=== PATIENT | male | born 2005 | race Caucasian/White ===

== ENCOUNTER 2025-01-20 11:32 | Observation (INO) ==
--- NOTE | 2025-01-20 12:13 | Emergency Department Note ---
Impression & Plan Headache ED Provider Note CHIEF COMPLAINT: Headache, blurred vision HISTORY OF PRESENTING ILLNESS: Patient is a pleasant, well-appearing, 19-year-old male who arrives to the emergency department for evaluation of generalized weakness, headache, and blurred vision. He reports tinnitus. He states he feels generally ill. He reports no upper respiratory symptoms, abdominal pain, nausea or vomiting. He states he has had intermittent fevers. He reports the headache has resolved, however then he began to have blurred vision. He reports no unilateral weakness, difficulty with speech, or balance issues. He reports no past medical history, other than slight anxiety. He reports no history of migraines. He is well-appearing otherwise, with slight hypertension, and tachycardia. He is afebrile. REVIEW OF SYSTEMS: See HPI for pertinent positives and pertinent negatives. ALLERGIES: See below MEDICATIONS: See below PAST MEDICAL HISTORY: See below PHYSICAL EXAM: VITALS: Vitals are noted on the nurse's note and reviewed by myself. Vital signs stable. GENERAL: 19-year-old male, in no acute distress, nondiaphoretic, well-developed well-nourished. SKIN: The skin was without rashes, erythema, edema, or bruising. HEAD: Normocephalic atraumatic. EARS: External auditory canals clear, tympanic membranes pearly perez without erythema or effusion bilaterally. No hemotympanum. EYES: Pupils equal round and reactive to light and accommodation. Conjunctivae without injection, sclerae without icterus. Extraocular movements intact. No nystagmus. NOSE: Patent, turbinates without inflammation or discharge. No sinus tenderness. MOUTH: Mucous membranes moist. Tonsils are not enlarged. Pharynx without erythema or exudate. Uvula midline. Airway patent. Tongue does not deviate. NECK: Supple without nuchal rigidity. No lymphadenopathy. Cervical spine is nontender. No JVD. HEART: Regular rate and rhythm without murmurs gallops or rubs. LUNGS: Clear to auscultation bilaterally without wheezes, rales or rhonchi. No retractions or accessory muscle use. ABDOMEN: Positive bowel sounds x 4. Soft, nontender, without masses or organomegaly. Crook sign negative. No guarding or rebound tenderness. MUSCULOSKELETAL: No muscle atrophy, erythema, or edema noted. Normal gait. Strength 5/5 throughout. NEURO: Patient was alert and oriented to person place and time. No focal neurological deficits. DIFFERENTIAL DIAGNOSIS: Migraine headache, meningitis, sinusitis, CO exposure, ICH, SAH, infection, tumor, headache, sinus thrombosis, arterial dissection, as well as other pathologies. ED COURSE AND MEDICAL DECISION MAKING: MEDICATIONS GIVEN: 1 L NSS bolus INTERPRETATION OF LABS: I interpreted the labs with full lab results as below in the lab section of this note. Pertinent lab results discussed in the MDM section below. INTERPRETATION OF IMAGING: Imaging studies were interpreted by myself and read by radiology as per the imaging section of this note. MDM SUMMARY: The patient is a pleasant, 19-year-old male who arrives to the emergency department for evaluation of the above-stated complaint. Saline lock was established, lab work was obtained. CBC shows no leukocytosis, no anemia, CMP is unremarkable, Lyme negative. Upper respiratory viral panel negative. CT imaging of the head was obtained, which shows a normal exam. Upon discussion with the patient, he states he is still weak despite IV fluids. He does remain tachycardic. There is concern for neurological cause, and a decision was made to obtain MRI imaging of the brain. The patient was agreeable to this. MRI imaging shows a few periventricular T2 hyperintense foci within the left frontal lobe without associated enhancement. Likely nonspecific and of questionable significance. A demyelinating disease such as MS or Lyme disease are within the differential although not highly suggestive. Follow-up MRI of the brain is recommended in 3 months. Otherwise unremarkable. I spoke with the patient regarding the findings. Neurology consultation was obtained, Dr. Roman from [facility] [place] recommended treatment for MS with IV steroids, and admission to the hospital. Teleneurology consult was setup for the patient to be evaluated by Dr. Roman. Please refer to her note. The patient was admitted to Dr. Walker from the [place] hospitalist group, who will manage administration of steroids, and patient care. Please refer to his documentation for further patient workup and care. DIAGNOSIS: Neurological symptoms The chart was completed utilizing [employer] voice recognition software. Grammatical errors, random word insertions, pronoun errors, and incomplete sentences are an occasional consequence of this system due to software limitations, ambient noise, and hardware issues. Any formal questions or concerns about the content, text, or information contained within the body of this dictation should be directly addressed to the provider for clarification. Past Med/Surg History Problem List Headache (Acute) Social History Smoking Status: Never smoker Feels Safe at Home: Yes Allergies Allergies Allergy/AdvReac Type Severity Reaction Status Date / Time No Known Allergies Allergy Verified 01/20/25 16:52 Home Meds Home Medications Medication Instructions Recorded Confirmed ibuprofen 200 mg tablet 400 mg PO Q6H PRN PAIN/AVILA/FEVER 01/20/25 01/20/25 Results & Data (ED) Vital Signs Vital Signs - 24 hr 01/20/25 11:33 01/20/25 11:36 01/20/25 13:33 Temperature 36.9 C Temperature Source Temporal Artery Scan Pulse Rate 118 H Pulse Rate [Left Finger] 110 H 112 H Respiratory Rate 18 20 18 Respiratory Effort / Characteristics Non-Labored Spontaneous Respiratory Depth Normal Blood Pressure 154/89 H Blood Pressure [Left Arm] 145/78 H 145/82 H Blood Pressure Mean 110 Blood Pressure Mean [Left Arm] 100 103 Pulse Oximetry 98 98 98 Oxygen Delivery Method Room Air Room Air Room Air Sepsis Recent Fever Within 48 Hours No Sepsis New/Unexplained Change in Mental Status N/A Sepsis Action Taken by Nursing No Action Required 01/20/25 14:06 01/20/25 15:00 01/20/25 16:02 Temperature 36.9 C Temperature Source Oral Pulse Rate 93 H Pulse Rate [Left Finger] 91 H Respiratory Rate 18 Respiratory Effort / Characteristics Respiratory Depth Blood Pressure Blood Pressure [Left Arm] 156/96 H Blood Pressure Mean Blood Pressure Mean [Left Arm] 116 Pulse Oximetry 97 Oxygen Delivery Method Room Air Sepsis Recent Fever Within 48 Hours Sepsis New/Unexplained Change in Mental Status Sepsis Action Taken by [facility] Medications Current Medication List: was personally reviewed by me Laboratory Data Attestation: I reviewed the patient's lab results. 01/20/25 Unknown 01/20/25 Unknown Lab Results 01/20/25 01/20/25 Range/Units 12:36 Unknown WBC 4.78 L (4.8-10.8) K/ul RBC 5.57 (4.70-6.10) M/uL Hgb 16.7 (14.0-18.0) g/dl Hct 47.1 (42.0-52.0) % MCV 84.6 (80.0-100.0) fL MCH 30.0 (25.0-34.0) pg MCHC 35.5 (32.0-36.0) g/dL RDW Std Deviation 35.1 L (36.4-46.3) fL RDW Coeff of Otilio 11.5 (11.5-14.5) % Plt Count 160 (130-400) K/uL MPV 10.6 (9.4-12.4) fL Immature Gran % (Auto) 0.4 % Neut % (Auto) 57.2 % Lymph % (Auto) 34.3 % [place] % (Auto) 5.6 % Eos % (Auto) 2.1 % Baso % (Auto) 0.4 % Neut # (Auto) 2.73 (1.40-6.50) K/uL Lymph # (Auto) 1.64 (1.20-3.40) K/uL [place] # (Auto) 0.27 (0.11-0.59) K/uL Eos # (Auto) 0.10 (0.00-0.50) K/uL Baso # (Auto) 0.02 (0.00-0.20) K/uL Immature Gran # (Auto) 0.02 (0.01-0.20) K/uL Sodium 139 (136-145) mmol/L Potassium 4.5 (3.5-5.1) mmol/L Chloride 103 (98-107) mmol/L Carbon Dioxide 29 (21-32) mmol/L Anion Gap 7 (3-11) BUN 16 (6-23) mg/dl Creatinine 1.03 (0.6-1.4) mg/dl Est Cr Clr Drug Dosing 109.8 ml/min eGFR 105.99 BUN/Creatinine Ratio 15.5 (10-20) Glucose 111 H (70-99(Fasting)) mg/dl Calcium 9.8 (8.6-10.3) mg/dl Total Bilirubin 1.2 H (0.2-1.0) mg/dl AST 20 (13-39) U/L ALT 19 (7-52) U/L Alkaline Phosphatase 61 (34-104) U/L Total Protein 7.9 (6.0-8.3) gm/dl Albumin 5.2 H (3.4-5.0) gm/dl Globulin 2.7 (2.5-4.0) gm/dl Albumin/Globulin Ratio 1.9 (0.9-2) Adenovirus (PCR) Not Detected (NotDetected) Anaplasma Smear See Comment Babesia Smear See Comment B. pertussis DNA (PCR) Not Detected (NotDetected) B.parapertussis DNA PCR Not Detected (NotDetected) Lyme Disease Screen Negative (Negative) C. pneumoniae DNA (PCR) Not Detected (NotDetected) Coronavirus OC43 (PCR) Not Detected (NotDetected) Coronavirus HKU1 (PCR) Not Detected (NotDetected) Coronavirus 229E (PCR) Not Detected (NotDetected) SARS-CoV-2 (PCR) Not Detected (NotDetected) Coronavirus NL63 (PCR) Not Detected (NotDetected) Human Metapneumovir PCR Not Detected (NotDetected) Influenza Type A (PCR) Not Detected (NotDetected) Influenza Type B (PCR) Not Detected (NotDetected) M. pneumoniae (PCR) Not Detected (NotDetected) Parainfluenza 1 (PCR) Not Detected (NotDetected) Parainfluenza 2 (PCR) Not Detected (NotDetected) Parainfluenza 3 (PCR) Not Detected (NotDetected) Parainfluenza 4 (PCR) Not Detected (NotDetected) RSV (PCR) Not Detected (NotDetected) Entero/Rhino (PCR) Not Detected (NotDetected) Administered Medications Discontinued Medications Gadobutrol (Gadobutrol 65ml Vial) 8 ml IV ONCE ONE Stop: 01/20/25 14:58 Last Admin: 01/20/25 14:57 Dose: 8 ml Documented By: RAMO Sodium Chloride (Nss) 1,000 mls @ 999 mls/hr IV .Q1H1M ONE Stop: 01/20/25 13:13 Last Infusion: 01/20/25 14:43 Dose: Infused Documented By: jesús Admin: 01/20/25 12:43 Dose: 999 mls/hr Documented By: jesús Sodium Chloride (Nss) 1,000 mls @ 999 mls/hr IV .Q1H1M ONE Stop: 01/20/25 15:09 Last Infusion: 01/20/25 16:36 Dose: Infused Documented By: jesús Admin: 01/20/25 15:31 Dose: 999 mls/hr Documented By: jesús Imaging Data Attestation: I personally reviewed and interpreted this imaging study as follows: Radiologist's Impression: Head CT 01/20/25 12:21 CT head/brain wo con CLINICAL HISTORY: 19 years-old Male with headache, blurred vision. Acute headache with blurry vision TECHNIQUE: Multiple axial CT images of the head were obtained without contrast. A dose lowering technique was utilized adhering to the principles of ALARA. CT DOSE: 625.8 mGy.cm COMPARISON: None. FINDINGS: No acute intracranial hemorrhage, midline shift, intracranial mass, hydrocephalus, territorial ischemia or abnormal extra-axial collection. The calvarium is intact. The paranasal sinuses, mastoid air cells, and middle ear cavities are clear. IMPRESSION: Normal exam. ACT 112: Negative or not required by law. The above report was generated using voice recognition software. It may contain grammatical, syntax or spelling errors. Electronically signed by: Juvencio Palencia M.D. 01/20/2025 1:39 PM Brain MRI 01/20/25 14:06 MRI OF THE BRAIN COMBO CLINICAL HISTORY: Headache. Weakness. Blurred vision. COMPARISON STUDY: Head CT performed earlier today. TECHNIQUE: MRI of the brain was performed utilizing various T1 and T2-weighted sequences in the axial, sagittal, and coronal planes. Contrast-enhanced sequences were acquired following the administration of 8 cc of Gadavist. FINDINGS: There are no foci of restricted diffusion to suggest acute infarct. No acute intracranial hemorrhage, midline shift or mass effect is present. Brain volume is normal. Ventricular system is normal. Basal cisterns are patent. Flow- voids for the major intracranial vessels are present. There is no intracranial mass or pathologic enhancement. There are a few periventricular T2 hyperintense foci within the left frontal lobe. No associated enhancement is present. No additional foci of parenchymal signal abnormality are present. There are no calvarial lesions. IMPRESSION: 1. No evidence for acute infarct. No acute intracranial hemorrhage. 2. A few periventricular T2 hyperintense foci within the left frontal lobe without associated enhancement. These are nonspecific and of questionable significance. A demyelinating disease such as multiple sclerosis or Lyme disease are within the differential although not highly suggestive. This could be assessed with a follow-up MRI of the brain in 3 months. 3. Otherwise, unremarkable MRI of the brain. ACT 112: Negative or not required by law. Electronically signed by: Garrison Hackett M.D. 01/20/2025 3:45 PM Discharge Plan Visit Data Chief Complaint: Headache Stated Complaint: WEAK BLURRY VISON HEDACHE ED Provider: Yoly Mckinley ED Midlevel Provider: Seda Haro Discharge Problem: Headache Patient Disposition: Home - Self-Care Condition: Good Forms Stand Alone Forms: [facility], Important Visit Information Prescriptions Prescriptions: No Action ibuprofen 200 mg Tablet 400 mg PO Q6H PRN (Reason: PAIN/AVILA/FEVER) Referrals Referrals: PCP,NO [Physician] -
[2025-01-20 12:37] LABS: Hematocrit (blood only) 47.1 % (42.0-52.0); Hemoglobin 16.7 g/dl (14.0-18.0); Immature Granulocytes # (auto) 0.02 K/uL (0.01-0.20); Immature Granulocytes % (auto) 0.4 %; Mean Corpuscular Hemoglobin 30.0 pg (25.0-34.0); Mean Corpuscular Volume 84.6 fL (80.0-100.0); Platelet Count 160 K/uL (130-400); RDW Standard Deviation 35.1 fL (36.4-46.3); Red Blood Count 5.57 M/uL (4.70-6.10); White Blood Count 4.78 K/ul (4.8-10.8)
[2025-01-20] MEDS: SODIUM CHLORIDE 0.9% 1,000 ML IV ONE ×2 (12:43→15:31)
[2025-01-20 12:52] LABS: Alanine Aminotransferase 19.0 U/L (7-52); Albumin Globulin Ratio 1.9 (0.9-2); Albumin Level 5.2 gm/dl (3.4-5.0); Alkaline Phosphatase 61.0 U/L (34-104); Anion Gap 7.0 (3-11); Bilirubin,Total 1.2 mg/dl (0.2-1.0); Blood Urea Nitrogen 16.0 mg/dl (6-23); Calcium 9.8 mg/dl (8.6-10.3); Carbon Dioxide 29.0 mmol/L (21-32); Chloride 103.0 mmol/L (98-107); Creatinine Clr Calc Pharmacy 109.8 ml/min; Globulin 2.7 gm/dl (2.5-4.0); Glucose 111.0 mg/dl (70-99(Fasting)); Potassium 4.5 mmol/L (3.5-5.1); Sodium 139.0 mmol/L (136-145); Total Protein 7.9 gm/dl (6.0-8.3)
[2025-01-20 13:22] LABS: Chlamydia pneumoniae PCR Not Detected (NotDetected); Coronavirus 229E PCR Not Detected (NotDetected); Coronavirus CoV-2 (COVID19)PCR Not Detected (NotDetected); Coronavirus HKU1 PCR Not Detected (NotDetected); Coronavirus NL63 PCR Not Detected (NotDetected); Coronavirus OC43PCR Not Detected (NotDetected); Human Metapneumovirus PCR Not Detected (NotDetected); Parainfluenza Virus 1 PCR Not Detected (NotDetected); Parainfluenza Virus 2 PCR Not Detected (NotDetected); Parainfluenza Virus 3 PCR Not Detected (NotDetected); Parainfluenza Virus 4 PCR Not Detected (NotDetected); Respiratory Syncytial VirusPCR Not Detected (NotDetected); Rhinovirus/Enterovirus PCR Not Detected (NotDetected)
--- NOTE | 2025-01-20 13:40 | CT Scan Report ---
CT head/brain wo con CLINICAL HISTORY: 19 years-old Male with headache, blurred vision. Acute headache with blurry vision TECHNIQUE: Multiple axial CT images of the head were obtained without contrast. A dose lowering tech nique was utilized adhering to the principles of ALARA. CT DOSE: 625.8 mGy.cm COMPARISON: None. FINDINGS: No acute intracranial hemorrhage, midline shift, intracranial mass, hydrocephalus, territorial ischem ia or abnormal extra-axial collection. The calvarium is intact. The paranasal sinuses, mastoid air cells, and middle ear cavities are clear . IMPRESSION: Normal exam. ACT 112: Negative or not required by law. The above report was generated using voice recognition software. It may contain grammatical, syntax o r spelling errors. Electronically signed by: Juvencio Palencia M.D. 01/20/2025 1:39 PM
[2025-01-20] MEDS: GADOBUTROL 65ML VIAL IV ONE (14:57)
--- NOTE | 2025-01-20 15:46 | Magnetic Resonance Report ---
MRI OF THE BRAIN COMBO CLINICAL HISTORY: Headache. Weakness. Blurred vision. COMPARISON STUDY: Head CT performed earlier today. TECHNIQUE: MRI of the brain was performed utilizing various T1 and T2-weighted sequences in the axial , sagittal, and coronal planes. Contrast-enhanced sequences were acquired following the administratio n of 8 cc of Gadavist. FINDINGS: There are no foci of restricted diffusion to suggest acute infarct. No acute intracranial h emorrhage, midline shift or mass effect is present. Brain volume is normal. Ventricular system is nor mal. Basal cisterns are patent. Flow-voids for the major intracranial vessels are present. There is n o intracranial mass or pathologic enhancement. There are a few periventricular T2 hyperintense foci w ithin the left frontal lobe. No associated enhancement is present. No additional foci of parenchymal signal abnormality are present. There are no calvarial lesions. IMPRESSION: 1. No evidence for acute infarct. No acute intracranial hemorrhage. 2. A few periventricular T2 hyperintense foci within the left frontal lobe without associated enhance ment. These are nonspecific and of questionable significance. A demyelinating disease such as multipl e sclerosis or Lyme disease are within the differential although not highly suggestive. This could be assessed with a follow-up MRI of the brain in 3 months. 3. Otherwise, unremarkable MRI of the brain. ACT 112: Negative or not required by law. Electronically signed by: Garrison Hackett M.D. 01/20/2025 3:45 PM
--- NOTE | 2025-01-20 17:20 | Neurology Consultation ---
Date of Consultation January 20, 2025 Assessment & Plan (1) Headache: (2) Generalized weakness: (3) Tinnitus: Plan 19-year-old male presented with headache, tinnitus, generalized weakness, and blurred vision. MRI of the brain is concerning for multiple sclerosis versus Lyme disease. Viral meningitis is also in the differential because patient initially had neck stiffness associated with headache and weakness. Patient admitted for further workup because of persistent symptoms Head CT was done which was negative for acute intracranial pathology. Follow-up MRI of the brain was done which showed few periventricular T2 hyperintensities foci within the left frontal lobe without associated enhancement. Likely nonspecific and questionable significance. A demyelinating disease such as MS or Lyme disease are also in the differential. MRI brain with and without contrast to evaluate for active demyelinating lesions. Need Lumbar puncture and please send CSF for: CSF Cell count & differential, Gram stain, Culture & Sensitivity, Protein, Glucose, Infectious: If CSF has increased WBCs, please order: Meningitis/encephalitis panel, VDRL, West Nile Virus PCR, EBV PCR CSF: Oligoclonal Banding with SPEP, KATIA level, Aquaporin 4-Ab (blood/CSF), IgG, IgM, and IgG index. Serum: Myelin Oligodendrocyte Glycoprotein (MOG)-Ab (Miscellaneous order to [facility]), c-ANCA, p-ANCA, ELSY panel Consider ID input to check for infectious etiologies and see what other testing needed on the CSF Neurochecks every 4 hours Continue medical management per primary team Further recommendations depend on the results of the testing Plan discussed in detail with the admitting provider Seda Haro Time Spent (min) 60 minutes Comment Total time includes patient contact, chart review, counseling, note preparation *Disclaimer: This note was generated using Smartzer dictation software. Any typographical errors are unintentional and attributed to errors in voice recognition. If there are any areas of the note that do not make sense, please contact me for clarification. Telehealth Consultation Telehealth Information Telehealth Information: I performed this visit using a real-time telehealth connection between my location and the patients originating location ([facility]). After connecting through interactive tele-video, patient was identified by name and date of and/or wristband check.Patient (or authorized healthcare healthcare sales representative) was informed that this was a telemedicine visit and it was being conducted confidentially over secure lines. My office door was closed and no one else was present in the room with me.Patient (or authorized healthcare healthcare sales representative) provided consent to proceed with the visit, expressed an understanding of privacy and security of the telemedicine visit, and gave permission to have a hospital healthcare sales representative in the room in order to assist with the visit and to conduct portions of the visit, as needed. I informed the patient (or authorized healthcare healthcare sales representative) that I reviewed their record and presented the opportunity for them to ask any questions regarding the visit today. The patient agreed to participate. History of Present Illness Reason for Consultation: Multiple neurological symptoms Abnormal MRI Brain Requesting Physician: Seda Haro Attending Physician: Huber Walker MD History of Present Illness 19-year-old male presented to the emergency room because of evaluation of generalized weakness associated with headache, blurred vision, and tinnitus. Patient also has malaise with weakness. According to the patient, on Thursday he felt his neck was stiff associated with headache, he also has chills but no hide great fever with generalized weakness, tinnitus, and blurred vision. The neck stiffness is resolved but he still has weakness with tinnitus a and is not feeling well. He still has blurred vision. Patient has no prior history of similar symptoms. He denies any focal weakness, focal paresthesia, nausea, vomiting, chest pain, abdominal pain, or problems with speech or swallowing. Patient denies any family history of multiple sclerosis. In the emergency room, head CT was done which was negative for acute intracranial pathology. Follow-up MRI of the brain was done which showed few periventricular T2 hyperintensities foci within the left frontal lobe without associated enhancement. Likely nonspecific and questionable significance. A demyelinating disease such as MS or Lyme disease are also in the differential. Follow-up of MRI of the brain is recommended in 3 months. Because of patient persistent symptoms, he is admitted for workup for MS and to rule out infectious cause for his symptoms like viral meningitis. Allergies Allergy/AdvReac Type Severity Reaction Status Date / Time No Known Allergies Allergy Verified 01/20/25 16:52 Home Medications Medication Instructions Recorded Confirmed Type ibuprofen 200 mg tablet 400 mg PO Q6H PRN PAIN/AVILA/FEVER 01/20/25 01/20/25 History Patient History Social History Smoking Status: Never smoker Feels Safe at Home: Yes Review of Systems Constitutional symptoms, eyes, ears, nose, throat, cardiovascular, respiratory, gastrointestinal, genitourinary, musculoskeletal, endocrine, hematologic, and psychiatric review of systems are negative about the chief complaint, except as detailed in the present illness. Physical Exam Neuro Exam Mentation and Language Alert and oriented to person, place, time and situation. There is no apparent deficit of comprehensionfluent speech without word-finding difficulty or dysarthria. The affect appears appropriate. Cranial Nerves CN 11-X11 intact. Except cranial nerve IIdecreased visual acuity Motor There is appropriate bulk throughout. Tone is normal. There is no resting tremor or other extraneous movements. Strength is graded 5/5 throughout the upper and lower extremities bilaterally. Sensation Intact to light touch, vibration, proprioception, temperature, pinprick bilaterally Coordination There is no dysmetria with finger nose finger Gait and Station Deferred due to patient safety reasons. Results & Data Vital Signs (Past 12 Hours) Vital Signs Temp Pulse Pulse Resp BP BP Pulse Ox 01/20/25 16:02 93 H 01/20/25 15:00 91 H 18 156/96 H 97 01/20/25 14:06 36.9 C 01/20/25 13:33 112 H 18 145/82 H 98 01/20/25 11:36 36.9 C 118 H 20 154/89 H 98 01/20/25 11:33 110 H 18 145/78 H 98 O2 Del Method 01/20/25 16:02 01/20/25 15:00 Room Air 01/20/25 14:06 01/20/25 13:33 Room Air 01/20/25 11:36 Room Air 01/20/25 11:33 Room Air Laboratory Results Lab Results 01/20/25 01/20/25 Range/Units 12:36 Unknown WBC 4.78 L (4.8-10.8) K/ul RBC 5.57 (4.70-6.10) M/uL Hgb 16.7 (14.0-18.0) g/dl Hct 47.1 (42.0-52.0) % MCV 84.6 (80.0-100.0) fL MCH 30.0 (25.0-34.0) pg MCHC 35.5 (32.0-36.0) g/dL RDW Std Deviation 35.1 L (36.4-46.3) fL RDW Coeff of Otilio 11.5 (11.5-14.5) % Plt Count 160 (130-400) K/uL MPV 10.6 (9.4-12.4) fL Immature Gran % (Auto) 0.4 % Neut % (Auto) 57.2 % Lymph % (Auto) 34.3 % Freestone % (Auto) 5.6 % Eos % (Auto) 2.1 % Baso % (Auto) 0.4 % Neut # (Auto) 2.73 (1.40-6.50) K/uL Lymph # (Auto) 1.64 (1.20-3.40) K/uL Freestone # (Auto) 0.27 (0.11-0.59) K/uL Eos # (Auto) 0.10 (0.00-0.50) K/uL Baso # (Auto) 0.02 (0.00-0.20) K/uL Immature Gran # (Auto) 0.02 (0.01-0.20) K/uL Sodium 139 (136-145) mmol/L Potassium 4.5 (3.5-5.1) mmol/L Chloride 103 (98-107) mmol/L Carbon Dioxide 29 (21-32) mmol/L Anion Gap 7 (3-11) BUN 16 (6-23) mg/dl Creatinine 1.03 (0.6-1.4) mg/dl Est Cr Clr Drug Dosing 109.8 ml/min eGFR 105.99 BUN/Creatinine Ratio 15.5 (10-20) Glucose 111 H (70-99(Fasting)) mg/dl Calcium 9.8 (8.6-10.3) mg/dl Total Bilirubin 1.2 H (0.2-1.0) mg/dl AST 20 (13-39) U/L ALT 19 (7-52) U/L Alkaline Phosphatase 61 (34-104) U/L Total Protein 7.9 (6.0-8.3) gm/dl Albumin 5.2 H (3.4-5.0) gm/dl Globulin 2.7 (2.5-4.0) gm/dl Albumin/Globulin Ratio 1.9 (0.9-2) Adenovirus (PCR) Not Detected (NotDetected) Anaplasma Smear See Comment Babesia Smear See Comment B. pertussis DNA (PCR) Not Detected (NotDetected) B.parapertussis DNA PCR Not Detected (NotDetected) Lyme Disease Screen Negative (Negative) C. pneumoniae DNA (PCR) Not Detected (NotDetected) Coronavirus OC43 (PCR) Not Detected (NotDetected) Coronavirus HKU1 (PCR) Not Detected (NotDetected) Coronavirus 229E (PCR) Not Detected (NotDetected) SARS-CoV-2 (PCR) Not Detected (NotDetected) Coronavirus NL63 (PCR) Not Detected (NotDetected) Human Metapneumovir PCR Not Detected (NotDetected) Influenza Type A (PCR) Not Detected (NotDetected) Influenza Type B (PCR) Not Detected (NotDetected) M. pneumoniae (PCR) Not Detected (NotDetected) Parainfluenza 1 (PCR) Not Detected (NotDetected) Parainfluenza 2 (PCR) Not Detected (NotDetected) Parainfluenza 3 (PCR) Not Detected (NotDetected) Parainfluenza 4 (PCR) Not Detected (NotDetected) RSV (PCR) Not Detected (NotDetected) Entero/Rhino (PCR) Not Detected (NotDetected) Diagnostic Findings Radiologist's Impression: Head CT 01/20/25 12:21 CT head/brain wo con CLINICAL HISTORY: 19 years-old Male with headache, blurred vision. Acute headache with blurry vision TECHNIQUE: Multiple axial CT images of the head were obtained without contrast. A dose lowering technique was utilized adhering to the principles of ALARA. CT DOSE: 625.8 mGy.cm COMPARISON: None. FINDINGS: No acute intracranial hemorrhage, midline shift, intracranial mass, hydrocephalus, territorial ischemia or abnormal extra-axial collection. The calvarium is intact. The paranasal sinuses, mastoid air cells, and middle ear cavities are clear. IMPRESSION: Normal exam. ACT 112: Negative or not required by law. The above report was generated using voice recognition software. It may contain grammatical, syntax or spelling errors. Electronically signed by: Juvencio Palencia M.D. 01/20/2025 1:39 PM Brain MRI 01/20/25 14:06 MRI OF THE BRAIN COMBO CLINICAL HISTORY: Headache. Weakness. Blurred vision. COMPARISON STUDY: Head CT performed earlier today. TECHNIQUE: MRI of the brain was performed utilizing various T1 and T2-weighted sequences in the axial, sagittal, and coronal planes. Contrast-enhanced sequences were acquired following the administration of 8 cc of Gadavist. FINDINGS: There are no foci of restricted diffusion to suggest acute infarct. No acute intracranial hemorrhage, midline shift or mass effect is present. Brain volume is normal. Ventricular system is normal. Basal cisterns are patent. Flow- voids for the major intracranial vessels are present. There is no intracranial mass or pathologic enhancement. There are a few periventricular T2 hyperintense foci within the left frontal lobe. No associated enhancement is present. No additional foci of parenchymal signal abnormality are present. There are no calvarial lesions. IMPRESSION: 1. No evidence for acute infarct. No acute intracranial hemorrhage. 2. A few periventricular T2 hyperintense foci within the left frontal lobe without associated enhancement. These are nonspecific and of questionable significance. A demyelinating disease such as multiple sclerosis or Lyme disease are within the differential although not highly suggestive. This could be assessed with a follow-up MRI of the brain in 3 months. 3. Otherwise, unremarkable MRI of the brain. ACT 112: Negative or not required by law. Electronically signed by: Garrison Hackett M.D. 01/20/2025 3:45 PM Medications Administered Discontinued Medications Gadobutrol (Gadobutrol 65ml Vial) 8 ml IV ONCE ONE Stop: 01/20/25 14:58 Last Admin: 01/20/25 14:57 Dose: 8 ml Documented By: RAMO Sodium Chloride (Nss) 1,000 mls @ 999 mls/hr IV .Q1H1M ONE Stop: 01/20/25 13:13 Last Infusion: 01/20/25 14:43 Dose: Infused Documented By: jesús Admin: 01/20/25 12:43 Dose: 999 mls/hr Documented By: jesús Sodium Chloride (Nss) 1,000 mls @ 999 mls/hr IV .Q1H1M ONE Stop: 01/20/25 15:09 Last Infusion: 01/20/25 16:36 Dose: Infused Documented By: jesús Admin: 01/20/25 15:31 Dose: 999 mls/hr Documented By: jesús
--- NOTE | 2025-01-20 17:22 | History & Physical Report ---
Date of Service January 20, 2025 Assessment & Plan (1) Headache: Plan: With visual field changes and Malays. Viral panel is negative. Brain MRI scan however reveals suspicious findings in the left frontal lobe. Teleneurology has seen the patient. Lumbar puncture with CSF studies has been requested and pending. Will hold off on IV steroids until infectious process has been ruled out. Empiric Rocephin for now. Plan Empiric Rocephin. CSF studies and cultures requested. Supportive care. Serial lab History of Present Illness Chief Complaint: Headache, visual changes, malaise Primary Care Provider: Pedro Pablo Mccormack MD 19-year-old white male in good health for the past several days has had a right sided headache, blurred vision, malaise. He states the headache has now resolved but he just does not feel well. He came to the ED for evaluation. Lab testing is unremarkable. Head CT scan was unremarkable. Brain MRI however reveals left frontal lobe changes and multiple sclerosis is in the differential. Teleneurology has evaluated the patient. They recommend lumbar puncture with CSF studies. He is admitted for further evaluation and treatment. Rocephin has been ordered. Allergies Allergy/AdvReac Type Severity Reaction Status Date / Time No Known Allergies Allergy Verified 01/20/25 16:52 Home Medications Medication Instructions Recorded Confirmed Type ibuprofen 200 mg tablet 400 mg PO Q6H PRN PAIN/AVILA/FEVER 01/20/25 01/20/25 History Past Med/Surg History Problem List Headache (Acute) Social History Smoking Status: Never smoker Feels Safe at Home: Yes Review of Systems 2 Review of Systems: Constitutionalthe patient believes he has had an intermittent low-grade fever. No rigors ENTblurred vision but no diplopia. No epistaxis, no sore throat Respiratoryno cough, no wheezing, no shortness of breath Cardiacno palpitations, no chest pain, no syncope Alec nausea, vomiting, diarrhea, melena, hematochezia GUno urinary retention, no urinary incontinence, no dysuria, no hematuria Musculoskeletalno joint pain, no muscle tenderness Skinno bruising, no rashes, no pruritus Neurono isolated weakness, no paresthesia Psychno depression, no anxiety Physical Exam 2 Physical Exam: General-alert and oriented x3, no fever, no chills HEENT-head atraumatic and normocephalic, pupils equal and reactive to light, extraocular muscles intact Neck-no lymphadenopathy or thyromegaly, trachea midline Chest-clear to auscultation. No rales, wheezing or rhonchi Cardiac-regular rate and rhythm, normal S1 and S2 Abdomen-normal bowel sounds, no hepatosplenomegaly Extremities-no cyanosis, clubbing, or edema Neuro-cranial nerves II through XII intact, motor and sensory function within normal limits, strength symmetrical, no focal deficits. No nuchal rigidity Psych-normal affect, normal mood Results & Data Results & Data Vital Signs (Past 12 Hours) Vital Signs Temp Pulse Pulse Resp BP BP Pulse Ox 01/20/25 16:02 93 H 01/20/25 15:00 91 H 18 156/96 H 97 01/20/25 14:06 36.9 C 01/20/25 13:33 112 H 18 145/82 H 98 01/20/25 11:36 36.9 C 118 H 20 154/89 H 98 01/20/25 11:33 110 H 18 145/78 H 98 O2 Del Method 01/20/25 16:02 01/20/25 15:00 Room Air 01/20/25 14:06 01/20/25 13:33 Room Air 01/20/25 11:36 Room Air 01/20/25 11:33 Room Air Laboratory Results 01/20/25 Unknown 01/20/25 Unknown Code Status & VTE Plan Code Status Full code PG Care Time/CCT Total # of Minutes Spent Total Time Spent with Patient: Total time spent is greater than 50% in coordination of care (as documented) at patient's floor/unit and/or counseling patient: Coding Level of Care Code 08055 INT INP/OBS CARE 3/75MIN Diagnoses Headache R51.9
[2025-01-20] MEDS: cefTRIAXone SODIUM 2,000 MG/50 ML BAG IV ONE (18:07)
[2025-01-20 19:02] LABS: Appearance Urine Clear (Clear); Glucose Urine UA Negative (Negative)
[2025-01-20] MEDS ORDERED: ONDANSETRON INJ 2 MG/ML 2 ML VIAL IV PRN (20:05)
[2025-01-20] MEDS ORDERED: ACETAMINOPHEN 325 MG TAB PO PRN (20:05)
[2025-01-21 07:34] LABS: Hematocrit (blood only) 42.6 % (42.0-52.0); Hemoglobin 14.7 g/dl (14.0-18.0); Immature Granulocytes # (auto) 0.03 K/uL (0.01-0.20); Immature Granulocytes % (auto) 0.5 %; Mean Corpuscular Hemoglobin 29.5 pg (25.0-34.0); Mean Corpuscular Volume 85.4 fL (80.0-100.0); Platelet Count 152 K/uL (130-400); RDW Standard Deviation 35.8 fL (36.4-46.3); Red Blood Count 4.99 M/uL (4.70-6.10); White Blood Count 6.51 K/ul (4.8-10.8)
[2025-01-21 08:50] LABS: Anion Gap 8.0 (3-11); Blood Urea Nitrogen 15.0 mg/dl (6-23); Calcium 9.3 mg/dl (8.6-10.3); Carbon Dioxide 27.0 mmol/L (21-32); Chloride 106.0 mmol/L (98-107); Creatinine Clr Calc Pharmacy 105.7 ml/min; Glucose 87.0 mg/dl (70-99(Fasting)); Potassium 4.3 mmol/L (3.5-5.1); Sodium 141.0 mmol/L (136-145)
--- NOTE | 2025-01-21 10:23 | Neurology Progress Note ---
Date of Service January 21, 2025 Assessment & Plan (1) Headache: (2) Generalized weakness: (3) Tinnitus: Plan 19-year-old male presented with headache, tinnitus, generalized weakness, and blurred vision. MRI of the brain is concerning for multiple sclerosis versus Lyme disease. Viral meningitis is also in the differential because patient initially had neck stiffness associated with headache and weakness. Patient admitted for further workup because of persistent symptoms Head CT was done which was negative for acute intracranial pathology. Follow-up MRI of the brain was done which showed few periventricular T2 hyperintensities foci within the left frontal lobe without associated enhancement. Likely nonspecific and questionable significance. A demyelinating disease such as MS or Lyme disease are also in the differential. Symptoms improved since admission. s. Need Lumbar puncture and please send CSF for: CSF Cell count & differential, Gram stain, Culture & Sensitivity, Protein, Glucose, Infectious: If CSF has increased WBCs, please order: Meningitis/encephalitis panel, VDRL, West Nile Virus PCR, EBV PCR CSF: Oligoclonal Banding with SPEP, KATIA level, Aquaporin 4-Ab (blood/CSF), IgG, IgM, and IgG index. Serum: Myelin Oligodendrocyte Glycoprotein (MOG)-Ab (Miscellaneous order to [facility]), c-ANCA, p-ANCA, ELSY panel Consider ID input to check for infectious etiologies and see what other testing needed on the CSF Neurochecks every 4 hours Continue medical management per primary team MRI of the brain showed nonenhancing lesion so differential diagnoses include demyelinating disease versus infectious. Patient is not a candidate for high- dose steroids. Patient and the family were made aware that the results of the CSF for MS panel takes about a week so the need to follow-up with neurologist as outpatient regarding the results. No other recommendations from neurology perspective Plan discussed in detail with the patient, parents at bedside, nursing staff, and communicated with the primary attending Dr. Walker Time Spent (min) 30 minutes Comment Total time includes patient contact, chart review, counseling, note preparation *Disclaimer: This note was generated using [email or web address] software. Any typographical errors are unintentional and attributed to errors in voice recognition. If there are any areas of the note that do not make sense, please contact me for clarification. Subjective Telehealth Information After establishing a telemedicine visit, patient was verified with two unique identifiers. Patient (or authorized healthcare agricultural sales representative) acknowledged consent and understanding and gave permission to continue telemedicine session. Patient feels better but complain some neck soreness Review of Systems Constitutional symptoms, eyes, ears, nose, throat, cardiovascular, respiratory, gastrointestinal, genitourinary, musculoskeletal, endocrine, hematologic, and psychiatric review of systems are negative about the chief complaint, except as detailed in the present illness. Physical Exam Neuro Exam Mentation and Language Alert and oriented to person, place, time and situation. There is no apparent deficit of comprehensionfluent speech without word-finding difficulty or dysarthria. The affect appears appropriate. Cranial Nerves CN 11-X11 intact. Motor There is appropriate bulk throughout. Tone is normal. There is no resting tremor or other extraneous movements. Strength is graded 5/5 throughout the upper and lower extremities bilaterally. Sensation Intact to light touch, vibration, proprioception, temperature, pinprick bilaterally Coordination There is no dysmetria with finger nose finger Gait and Station Deferred due to patient safety reasons. Results & Data Vital Signs (Past 12 Hours) Vital Signs Temp Pulse Resp BP Pulse Ox O2 Del Method 01/21/25 07:10 36.3 C L 78 18 106/64 98 Room Air Laboratory Results Lab Results 01/20/25 01/20/25 Range/Units 12:36 Unknown WBC 4.78 L (4.8-10.8) K/ul RBC 5.57 (4.70-6.10) M/uL Hgb 16.7 (14.0-18.0) g/dl Hct 47.1 (42.0-52.0) % MCV 84.6 (80.0-100.0) fL MCH 30.0 (25.0-34.0) pg MCHC 35.5 (32.0-36.0) g/dL RDW Std Deviation 35.1 L (36.4-46.3) fL RDW Coeff of Otilio 11.5 (11.5-14.5) % Plt Count 160 (130-400) K/uL MPV 10.6 (9.4-12.4) fL Immature Gran % (Auto) 0.4 % Neut % (Auto) 57.2 % Lymph % (Auto) 34.3 % Eddy % (Auto) 5.6 % Eos % (Auto) 2.1 % Baso % (Auto) 0.4 % Neut # (Auto) 2.73 (1.40-6.50) K/uL Lymph # (Auto) 1.64 (1.20-3.40) K/uL Eddy # (Auto) 0.27 (0.11-0.59) K/uL Eos # (Auto) 0.10 (0.00-0.50) K/uL Baso # (Auto) 0.02 (0.00-0.20) K/uL Immature Gran # (Auto) 0.02 (0.01-0.20) K/uL Sodium 139 (136-145) mmol/L Potassium 4.5 (3.5-5.1) mmol/L Chloride 103 (98-107) mmol/L Carbon Dioxide 29 (21-32) mmol/L Anion Gap 7 (3-11) BUN 16 (6-23) mg/dl Creatinine 1.03 (0.6-1.4) mg/dl Est Cr Clr Drug Dosing 109.8 ml/min eGFR 105.99 BUN/Creatinine Ratio 15.5 (10-20) Glucose 111 H (70-99(Fasting)) mg/dl Calcium 9.8 (8.6-10.3) mg/dl Total Bilirubin 1.2 H (0.2-1.0) mg/dl AST 20 (13-39) U/L ALT 19 (7-52) U/L Alkaline Phosphatase 61 (34-104) U/L Total Protein 7.9 (6.0-8.3) gm/dl Albumin 5.2 H (3.4-5.0) gm/dl Globulin 2.7 (2.5-4.0) gm/dl Albumin/Globulin Ratio 1.9 (0.9-2) Adenovirus (PCR) Not Detected (NotDetected) Anaplasma Smear See Comment Babesia Smear See Comment B. pertussis DNA (PCR) Not Detected (NotDetected) B.parapertussis DNA PCR Not Detected (NotDetected) Lyme Disease Screen Negative (Negative) C. pneumoniae DNA (PCR) Not Detected (NotDetected) Coronavirus OC43 (PCR) Not Detected (NotDetected) Coronavirus HKU1 (PCR) Not Detected (NotDetected) Coronavirus 229E (PCR) Not Detected (NotDetected) SARS-CoV-2 (PCR) Not Detected (NotDetected) Coronavirus NL63 (PCR) Not Detected (NotDetected) Human Metapneumovir PCR Not Detected (NotDetected) Influenza Type A (PCR) Not Detected (NotDetected) Influenza Type B (PCR) Not Detected (NotDetected) M. pneumoniae (PCR) Not Detected (NotDetected) Parainfluenza 1 (PCR) Not Detected (NotDetected) Parainfluenza 2 (PCR) Not Detected (NotDetected) Parainfluenza 3 (PCR) Not Detected (NotDetected) Parainfluenza 4 (PCR) Not Detected (NotDetected) RSV (PCR) Not Detected (NotDetected) Entero/Rhino (PCR) Not Detected (NotDetected) Diagnostic Findings Radiologist's Impression: Head CT 01/20/25 12:21 CT head/brain wo con CLINICAL HISTORY: 19 years-old Male with headache, blurred vision. Acute headac he with blurry vision TECHNIQUE: Multiple axial CT images of the head were obtained without contrast. A dose lowering technique was utilized adhering to the principles of ALARA. CT DOSE: 625.8 mGy.cm COMPARISON: None. FINDINGS: No acute intracranial hemorrhage, midline shift, intracranial mass, hydrocephalus, territorial ischemia or abnormal extra-axial collection. The calvarium is intact. The paranasal sinuses, mastoid air cells, and middle ear cavities are clear. IMPRESSION: Normal exam. ACT 112: Negative or not required by law. The above report was generated using voice recognition software. It may contain grammatical, syntax or spelling errors. Electronically signed by: Juvencio Palencia M.D. 01/20/2025 1:39 PM Brain MRI 01/20/25 14:06 MRI OF THE BRAIN COMBO CLINICAL HISTORY: Headache. Weakness. Blurred vision. COMPARISON STUDY: Head CT performed earlier today. TECHNIQUE: MRI of the brain was performed utilizing various T1 and T2-weighted sequences in the axial, sagittal, and coronal planes. Contrast-enhanced sequences were acquired following the administration of 8 cc of Gadavist. FINDINGS: There are no foci of restricted diffusion to suggest acute infarct. No acute intracranial hemorrhage, midline shift or mass effect is present. Brain volume is normal. Ventricular system is normal. Basal cisterns are patent. Flow- voids for the major intracranial vessels are present. There is no intracranial mass or pathologic enhancement. There are a few periventricular T2 hyperintense foci within the left frontal lobe. No associated enhancement is present. No additional foci of parenchymal signal abnormality are present. There are no calvarial lesions. IMPRESSION: 1. No evidence for acute infarct. No acute intracranial hemorrhage. 2. A few periventricular T2 hyperintense foci within the left frontal lobe without associated enhancement. These are nonspecific and of questionable significance. A demyelinating disease such as multiple sclerosis or Lyme disease are within the differential although not highly suggestive. This could be assessed with a follow-up MRI of the brain in 3 months. 3. Otherwise, unremarkable MRI of the brain. ACT 112: Negative or not required by law. Electronically signed by: Garrison Hackett M.D. 01/20/2025 3:45 PM Medications Administered Discontinued Medications Gadobutrol (Gadobutrol 65ml Vial) 8 ml IV ONCE ONE Stop: 01/20/25 14:58 Last Admin: 01/20/25 14:57 Dose: 8 ml Documented By: RAMO Sodium Chloride (Nss) 1,000 mls @ 999 mls/hr IV .Q1H1M ONE Stop: 01/20/25 13:13 Last Infusion: 01/20/25 14:43 Dose: Infused Documented By: jesús Admin: 01/20/25 12:43 Dose: 999 mls/hr Documented By: jesús Sodium Chloride (Nss) 1,000 mls @ 999 mls/hr IV .Q1H1M ONE Stop: 01/20/25 15:09 Last Infusion: 01/20/25 16:36 Dose: Infused Documented By: jesús Admin: 01/20/25 15:31 Dose: 999 mls/hr Documented By: jesús
--- NOTE | 2025-01-21 12:29 | Discharge Summary ---
Discharge Summary Date of Service January 21, 2025 Principal Dx & Hospital Course #1 = Principal Diagnosis (1) Headache: With visual field changes and malaise on admission. Today, January 21, he looks and feels better. Parents are at the bedside. Viral panel is negative. Brain MRI scan however reveals abnormal findings in the left frontal lobe. Teleneurology has seen the patient. Lumbar puncture with CSF studies cannot be done in a timely fashion this weekend and this can be pursued as an outpatient if his symptoms persist. He will be discharged on oral prednisone and a tapering dose fashion. No evidence of bacterial meningitis and intravenous Rocephin has been discontinued. Plan Home today, January 21, on a tapering prednisone dose. He is instructed to see a local primary care provider soon as possible if his symptoms persist. He may return to school without restrictions on January 30. Admission HPI Per Admitting Provider 19-year-old white male in good health for the past several days has had a right sided headache, blurred vision, malaise. He states the headache has now resolved but he just does not feel well. He came to the ED for evaluation. Lab testing is unremarkable. Head CT scan was unremarkable. Brain MRI however reveals left frontal lobe changes and multiple sclerosis is in the differential. Teleneurology has evaluated the patient. They recommend lumbar puncture with CSF studies. He is admitted for further evaluation and treatment. Rocephin has been ordered. Discharge Exam General-alert and oriented x3, no fever, no chills HEENT-head atraumatic and normocephalic, pupils equal and reactive to light, extraocular muscles intact Neck-no lymphadenopathy or thyromegaly, trachea midline Chest-clear to auscultation. No rales, wheezing or rhonchi Cardiac-regular rate and rhythm, normal S1 and S2 Abdomen-normal bowel sounds, no hepatosplenomegaly Extremities-no cyanosis, clubbing, or edema Neuro-cranial nerves II through XII intact, motor and sensory function within normal limits, strength symmetrical, no focal deficits. No nuchal rigidity Psych-normal affect, normal mood Discharge Plan Discharge Items Patient Disposition: Home - Self-Care Reason For Visit: HEADACHE Discharge Diagnosis: Headache, suspected viral illness, visual field changes Condition on Discharge: Good Activity: Resume your previous activity Non-emergency contact: Primary Care Provider Call non-emergency contact if: your symptoms worsen Follow-up/Referrals: Pedro Pablo Mccormack MD [Primary Care Provider] - Diet: Regular Addtl Attending Provider Instructions: If symptoms persist, then see a local physician as soon as possible for follow- up. May return to school without restriction on January 30 Pending Studies at Discharge: No Stand-Alone Forms: My [facility], Work/School Release, Smoking Cessation Medications and DC Order Prescriptions: New prednisone 10 mg tablet See Rx Instructions .ROUTE .COMPLEX Qty: 12 0RF Rx Instructions: 10 mg orally 3 times a day for 2 days, then 10 mg twice a day for 2 days, then 10 mg once a day for 2 days, then stop Continued ibuprofen 200 mg Tablet 400 mg PO Q6H PRN (Reason: PAIN/AVILA/FEVER) Discharge Orders: Discharge Order (Routine); Ordered 01/21/25 Ordered By: Huber Walker Admission Data Admit Date/Time: 01/20/25 17:08 Attending Provider: Huber Walker Admit Provider: Huber Walker Primary Care Provider: Pedro Pablo Mccormack Other Providers: Huber Walker Hospital Stay Data Consultations 01/20/25 16:46 ED Decision to Admit Stat Diagnostic Imagining Performed 01/20/25 12:21 CT head/brain wo con Stat 01/20/25 14:06 MRI Brain [MR brain wo/w con] Stat 01/20/25 20:05 IR lumbar puncture diagnostic Urgent Pending Results Patient Have Any Pending Studies at Discharge: No Discharge Instructions Given to Patient (Per Discharging Provider) If symptoms persist, then see a local physician as soon as possible for follow- up. May return to school without restriction on January 30 Total Time Total Time Spent Total Time Spent (In Minutes): 45 minutes. Total time included patient exam, discharge planning, medication reconciliation, and communication with other providers. Coding Level of Care Code 71808 INP/OBS DISCH >30 MIN Diagnoses Headache R51.9
[2025-01-21] MEDS ORDERED: cefTRIAXone SODIUM 2,000 MG/50 ML BAG IV SCH (18:00)
== END 2025-01-21 13:55 | disposition home or self-care (01) ==
LOC: SUATTDRO → ED 11:32 → INTOOBSV 17:08 → 3E 17:08